=== PATIENT | male | born 1990 | race Caucasian/White ===

== ENCOUNTER 2020-11-13 18:16 | Emergency (ER) | payer SELFPAY ==
[~2020-11-13] VITALS: Ht 165.1 cm; Wt 77.1 kg
[2020-11-13 18:20] VITALS: BP 131/118
[2020-11-13 18:37] VITALS: BP 131/118
--- NOTE | 2020-11-13 18:38 | NUR ---
PATIENT BIB [employer]. PATIENT EXAMINED BY DR. RODARTE. PATIENT MEDICALLY CLEARED AND RELEASED IN CUSTODY IN STABLE CONDITION. ORIGINAL PRE-BOOK FORM GIVEN TO OFFICER WERO.
--- NOTE | 2020-11-13 18:38 | NUR ---
PATIENT ASSESSED AND DISCHARGED BY DR RODARTE. NO NURSING INTERVENTIONS PERFORMED
== END 2020-11-13 18:38 ==
LOC: MED 18:16
DX: S00.81XA Abrasion of other part of head, initial encounter (principal); Z02.89 Encounter for other administrative examinations; X58.XXXA Exposure to other specified factors, initial encounter; Y93.89 Activity, other specified; Y92.89 Other specified places as the place of occurrence of the external cause; Y99.8 Other external cause status
CPT/HCPCS: 99283